=== PATIENT | female | born 1965 | race Caucasian/White ===

== ENCOUNTER → 2017-02-08 | Outpatient (CLI) | payer OTHER | LOC: RAD 02:37 | DX: Z12.31 Encounter for screening mammogram for malignant neoplasm of breast (principal) ==

== ENCOUNTER → 2018-02-11 | Outpatient (CLI) | payer OTHER | LOC: RAD 02:16 | DX: Z12.31 Encounter for screening mammogram for malignant neoplasm of breast (principal) ==

== ENCOUNTER → 2019-02-13 | Outpatient (CLI) | payer OTHER | LOC: BC 08:44 | DX: Z12.31 Encounter for screening mammogram for malignant neoplasm of breast (principal) ==

== ENCOUNTER → 2020-02-19 | Outpatient (CLI) | payer OTHER | LOC: BC 09:26 | PROVIDERS: ATTEND Internal Medicine | DX: Z12.31 Encounter for screening mammogram for malignant neoplasm of breast (principal) ==

== ENCOUNTER → 2021-02-19 | Outpatient (CLI) | payer OTHER | LOC: BC 10:02 | PROVIDERS: ATTEND Internal Medicine | DX: Z12.31 Encounter for screening mammogram for malignant neoplasm of breast (principal); N64.89 Other specified disorders of breast ==